=== PATIENT | female | born 1990 | race Caucasian/White ===

== ENCOUNTER 2025-05-13 19:47 | Emergency (ER) | payer OTHER ==
[~2025-05-13] VITALS: Ht 165.1 cm; Wt 99.3 kg
[2025-05-14] MEDS: TETANUS/DIPHTH/ACEL. PERTUSSIS 0.5 ML SYR IM.IMMUN ONE
[2025-05-14 00:11] VITALS: BP 130/85; TEMP 97.5; O2SAT 98
== END 2025-05-14 00:14 | disposition home or self-care (01) ==
LOC: M ED 19:47
DX: S51.812A Laceration without foreign body of left forearm, initial encounter (principal); W26.8XXA Contact with other sharp object(s), not elsewhere classified, initial encounter; Y92.009 Unspecified place in unspecified non-institutional (private) residence as the place of occurrence of the external cause; Y93.89 Activity, other specified; Y99.9 Unspecified external cause status; Z23 Encounter for immunization